=== PATIENT | female | born 1975 | race Two or more races ===

== ENCOUNTER 2020-04-12 21:30 | Emergency (ER) | payer MEDICAID ==
[~2020-04-12] VITALS: Ht 152.4 cm; Wt 68.0 kg
[~2020-04-12 21:30] MED LIST: AMOXICILLIN500 MG ORAL; IBUPROFEN600 MG ORAL; NKM; NORCO 5-325 TA1 EACH ORAL; VALIUM5 MG ORAL
--- NOTE | 2020-04-12 21:41 | NUR ---
ED Nurse Note: Pt is a walk in from home. SHe walks with a steady gait. Her breathing is even and unlabored. Her vitals are stable as documented. She states that she has sharp pains intermittently in her left arm. She states marisol she has had sharp chest pain that is constant since 10am this morning. her breathing is even and unlabored. she is able to speak in complete sentances. no signs of distress noted.
--- NOTE | 2020-04-12 21:57 | Emergency Room Report ---
History of Present Illness General Chief Complaint: Chest Pain Source: Patient (Nav Simons MD) Present Illness HPI Disclaimer: Please note that this report is being documented using ticketeaON technology. This can lead to erroneous entry secondary to incorrect interpretat ion by the dictating instrument. HPI: 44-year-old female no reported medical history presents for evaluation of chest pain. Symptoms began this morning approximately 10 AM. She notes a soreness over the sternum that radiates to the left shoulder and sometimes down the left arm. Sometimes worse with deep inspiration. Denies exertional dyspnea. Reports some lightheadedness that comes and goes. Denies palpitations. Denies nausea or vomiting or diarrhea. Denies cough, congestion or fevers. No prior history of CAD or other comorbid conditions. Denies family history of cardiac disease. States she felt a similar sensation 1 month ago but the pain resolved and has not followed up. PMH: Denies PSH: Denies Allergies: Denies Social Hx: Denies tobacco use (Nav Simons MD) Allergies: Coded Allergies: No Known Allergies (Unverified , 10/03/13) COVID-19 Screening Contact w/high risk pt: No Experienced COVID-19 symptoms?: No COVID-19 Testing performed [employer]ATION[employer] MANAGER: No (Nav Simons MD) Patient History Last Menstrual Period: current (Nav Simons MD) Nursing Documentation-PMH Past Medical History: No Stated History (Nav Simons MD) Review of Systems All Other Systems: negative except mentioned in HPI (Nav Simons MD) Physical Exam Vital Signs Date Time Temp Pulse Resp B/P (MAP) Pulse Ox O2 Delivery O2 Flow Rate FiO2 04/12/20 21:33 80 16 132/81 (98) 97 Room Air General: Awake and alert, no acute distress HEENT: NC/AT. EOMI. Cardiovascular: RRR. S1 and S2 normal. No murmur appreciated Resp: Normal work of breathing. No cough, wheezing or crackles appreciated Abdomen: Abdomen is soft, nondistended. Nontender Skin: Intact. No abrasions, laceration or rash over the exposed skin MSK: Normal tone and bulk. Moving all extremities. No obvious deformity. Neuro: Awake and alert. Mentating appropriately. (Nav Simons MD) Medical Decision Making Diagnostic Impression: Primary Impression: Chest pain ER Course 44-year-old female presents for evaluation of chest pain. Differential includes was not limited to musculoskeletal pain, ACS, palpitations, pneumonia, bronchitis, esophagitis, GERD, pneumonitis, among others. EKG is nonischemic. Labs and x-ray are pending. Patient was signed out to oncoming provider pending completion of work-up and final disposition. (Nav Simons MD) ER Course Laboratory Tests Test 04/12/20 22:00 White Blood Count 8.4 K/UL (4.8-10.8) Red Blood Count 4.53 M/UL (4.20-5.40) Hemoglobin 13.1 G/DL (12.0-16.0) Hematocrit 39.6 % (37.0-47.0) Mean Corpuscular Volume 87 FL (80-99) Mean Corpuscular Hemoglobin 28.9 PG (27.0-31.0) Mean Corpuscular Hemoglobin Concent 33.0 G/DL (32.0-36.0) Red Cell Distribution Width 12.1 % (11.6-14.8) Platelet Count 276 K/UL (150-450) Mean Platelet Volume 8.1 FL (6.5-10.1) Neutrophils (%) (Auto) 59.3 % (45.0-75.0) Lymphocytes (%) (Auto) 29.0 % (20.0-45.0) Monocytes (%) (Auto) 8.8 % (1.0-10.0) Eosinophils (%) (Auto) 1.8 % (0.0-3.0) Basophils (%) (Auto) 1.1 % (0.0-2.0) Sodium Level 140 MMOL/L (136-145) Potassium Level 3.5 MMOL/L (3.5-5.1) Chloride Level 106 MMOL/L (98-107) Carbon Dioxide Level 26 MMOL/L (21-32) Anion Gap 8 mmol/L (5-15) Blood Urea Nitrogen 21 mg/dL (7-18) H Creatinine 0.8 MG/DL (0.55-1.30) Estimated Glomerular Filtration Rate > 60 mL/min (>60) Glucose Level 105 MG/DL (74-106) Calcium Level 9.1 MG/DL (8.5-10.1) Total Bilirubin 0.2 MG/DL (0.2-1.0) Aspartate Amino Transferase (AST) 15 U/L (15-37) Alanine Aminotransferase (ALT) 19 U/L (12-78) Alkaline Phosphatase 85 U/L (46-116) Troponin I 0.000 ng/mL (0.000-0.056) Total Protein 7.6 G/DL (6.4-8.2) Albumin 3.8 G/DL (3.4-5.0) Globulin 3.8 g/dL Albumin/Globulin Ratio 1.0 (1.0-2.7) CXR: No infiltrate/effusion. Mediastinum within normal limits. No consolidations. No free air under the diaphragm. No bony abnormalities Patient was signed out to me by previous physician. Patient was in no acute distress whatsoever and had normal vital signs and neurovascularly intact. She had an unremarkable chest x-ray, normal CBC, CMP, troponin. Said that she had no chest pain or palpitations or lightheadedness in the emergency department. She had a low heart score of 2. She is safe for discharge and follow-up with her primary care provider at this time. Was told to return to the emergency department with worsening symptoms. She expressed understanding and was discharged. (Shaheed Turner M.D.) EKG Diagnostic Results Troponin ordered: Yes When was troponin ordered?: Apr 12, 2020 EKG Time: 21:56 Rate: normal Rhythm: NSR ST Segments: no acute changes Other Impression Sinus rhythm, normal axis, normal intervals, no ST segment changes. (Nav Simons MD) Rhythm Strip Diag. Results Rhythm Strip Time: 21:56 EP Interpretation: yes Rate: 80s Rhythm: NSR, no PVC's, no ectopy (Nav Simons MD) Last Vital Signs Date Time Temp Pulse Resp B/P (MAP) Pulse Ox O2 Delivery O2 Flow Rate FiO2 04/12/20 21:33 80 16 132/81 (98) 97 Room Air (Nav Simons MD) Nav Simons MD Apr 12, 2020 21:57 Shaheed Turner M.D. Apr 12, 2020 23:10
[2020-04-12 22:03] VITALS: BP 130/81
--- NOTE | 2020-04-12 22:15 | Diagnostic Imaging Report ---
EXAM: XR Chest, 1 View CLINICAL HISTORY: CP TECHNIQUE: Frontal view of the chest. COMPARISON: Chest radiograph 12/28/2013 FINDINGS: Lungs: Unremarkable. No consolidation. Pleural space: Unremarkable. No pneumothorax. Heart: Unremarkable. No cardiomegaly. Mediastinum: Unremarkable. Bones/joints: Unremarkable. IMPRESSION: Normal chest x-ray.
[2020-04-12 22:23] LABS: ANION GAP 8 mmol/L (5-15); BLOOD UREA NITROGEN 21 mg/dL (7-18); CALCIUM 9.1 MG/DL (8.5-10.1); CARBON DIOXIDE 26 MMOL/L (21-32); CHLORIDE 106 MMOL/L (98-107); CREATININE 0.8 MG/DL (0.55-1.30); POTASSIUM 3.5 MMOL/L (3.5-5.1); SODIUM 140 MMOL/L (136-145)
[2020-04-12 22:27] LABS: BASOPHILS % (AUTO) 1.1 % (0.0-2.0); EOSINOPHILS % (AUTO) 1.8 % (0.0-3.0); HEMATOCRIT 39.6 % (37.0-47.0); HEMOGLOBIN 13.1 G/DL (12.0-16.0); MEAN CORPUSCULAR VOLUME 87 FL (80-99); MONOCYTES % (AUTO) 8.8 % (1.0-10.0); NEUTROPHILS % (AUTO) 59.3 % (45.0-75.0); PLATELET COUNT 276 K/UL (150-450); RED BLOOD COUNT 4.53 M/UL (4.20-5.40); RED CELL DISTRIBUTION WIDTH 12.1 % (11.6-14.8); WHITE BLOOD COUNT 8.4 K/UL (4.8-10.8)
[2020-04-12 22:28] LABS: ALANINE AMINOTRANSFERASE 19 U/L (12-78); ALBUMIN 3.8 G/DL (3.4-5.0); ALKALINE PHOSPHATASE 85 U/L (46-116); ASPARTATE AMINO TRANSFERASE 15 U/L (15-37); BILIRUBIN,TOTAL 0.2 MG/DL (0.2-1.0)
[2020-04-12 22:54] VITALS: BP 135/82
--- NOTE | 2020-04-12 22:55 | NUR ---
ER DISCHARGE NOTE: Patient is cleared to be discharged per ERMD, pt is aox4, on room air, with stable vital signs. pt was given dc and prescription instructions, pt was able to verbalize understanding, pt id band and iv site removed without complications. pt is able to ambulate with steady gait. pt took all belongings. Pt left in private car
== END 2020-04-12 22:56 | disposition home or self-care (01) ==
LOC: EMR 22:00
DX: R07.9 Chest pain, unspecified (principal)
CPT/HCPCS: 36415; 71045; 80053; 84484; 85025; 93005; Z7502; 99283